=== PATIENT | female | born 1990 | race African-American/Black ===

== ENCOUNTER 2022-06-04 10:25 | Emergency (ER) | payer OTHER ==
[2022-06-04 10:32] VITALS: BP 101/68; PULSE 74; RESP 18; TEMP 98; BMI 24.3
[2022-06-04] MEDS ORDERED: ACETAMINOPHEN INJECTION 100 ML IVPB ONE (13:58)
[2022-06-04] MEDS: SODIUM CHLORIDE 1,000 ML IV STA ×2 (13:59→14:11)
[2022-06-04] MEDS: ACETAMINOPHEN 1000 MG/100 ML BAG IVPB ONE ×2 (13:59→14:10)
[2022-06-04] MEDS ORDERED: ACETAMINOPHEN 500 MG TABLET (FP) ONE (14:12)
[2022-06-04] MEDS ORDERED: ACETAMINOPHEN 500 MG TABLET (FP) PO ONE (14:16)
== END 2022-06-04 14:50 | disposition home or self-care (01) ==
LOC: JER 10:25 → JERFT 10:25
DX: R51.9 Headache, unspecified (principal)
CPT/HCPCS: 99283-25